=== PATIENT | male | born 1960 | race Caucasian/White ===

== ENCOUNTER 2020-07-14 15:17 | Outpatient (CLI) | payer OTHER ==
[2020-07-14] MEDS ORDERED: GADOBUTROL 15 MMOL/15 ML VIAL ONE (16:43)
[2020-07-14] MEDS ORDERED: GADOBUTROL 15 MMOL/15 ML VIAL IVP ONE (16:59)
--- NOTE | 2020-07-14 17:05 | MRI Report ---
PROCEDURE: Brain W/WO INDICATIONS: TREMOR CONTRAST: IV CONTRAST: Gadavist ml: 12 TECHNIQUE: Noncontrast axial T1 spin echo, axial T2 fast spin echo, sagittal and axial FLAIR, coronal T2 fast sp in echo, axial gradient echo, axial diffusion and ADC through the brain. After the administration of contrast, axial and coronal T1 spin echo with fat saturation through the brain. COMPARISON: None. FINDINGS: Image quality: Excellent. CSF spaces: Basal cisterns are patent. No extra-axial fluid collections. Ventricles are normal in size and shape. Brain: No midline shift. No intracranial bleeds or masses. No abnormal intracranial enhancement. There is cerebral volume loss for age. There is periventricular white matter chronic small vessel is chemic change. The brainstem appears normal. Diffusion-weighted images demonstrate no acute ischemi c insults. No chronic ischemic insults. Normal intravascular flow voids are present. Skull and face: Calvarial marrow is normal in signal. Orbits appear normal. Sinuses: Mild to moderate mucosal thickening is seen within the inferior left maxillary sinus. Sinus es and mastoids otherwise appear clear. IMPRESSION: No imaging explanation is found for the patient's presenting symptoms. No masses or abnormal enhancement can be seen. No findings of acute or subacute infarction are seen. Reviewed by: Claude Maldonado MD on 07/14/2020 4:03 PM [facility] Approved by: Claude Maldonado MD on 07/14/2020 4:03 PM [facility] Station ID: [id number]
== END 2020-07-14 15:18 | disposition home or self-care (01) ==
LOC: DI 15:17
PROVIDERS: ATTEND Nurse Practitioner Family
DX: R25.1 Tremor, unspecified (principal)
CPT/HCPCS: 70553; A9585

== ENCOUNTER 2020-07-14 15:24 | Outpatient (CLI) | payer OTHER ==
[2020-07-14 15:44] LABS: CREATININE 1.1 mg/dL (0.6-1.2)
== END 2020-07-14 15:25 | disposition home or self-care (01) ==
LOC: LAB 15:24
PROVIDERS: ATTEND Nurse Practitioner Family
DX: R25.1 Tremor, unspecified (principal)
CPT/HCPCS: 36415; 82565